=== PATIENT | male | born 1995 | race Caucasian/White ===

== ENCOUNTER 2016-07-19 18:35 | Emergency (ER) | payer BC ==
[~2016-07-19] VITALS: Ht 182.9 cm; Wt 113.4 kg
[2016-07-19] MEDS ORDERED: TETANUS DIPHTHERIA TOXOIDS IM STA (19:27)
--- NOTE | 2016-07-19 19:35 | ER.PDOC ---
General Chief Complaint: Extremities Stated Complaint: FOOT PAIN Time seen by MD: 19:25 Source: patient Exam Limitations: no limitations History of Present Illness Initial Comments Pt who suffered a puncture wound on left foot with leanna, dirty nail that went through the flip flop Onset: just prior to arrival Where: street Severity: moderate Context: laceration, wearing shoes Allergies: Coded Allergies: No Known Allergies (Unverified , 07/19/16) Past Medical History Surgical History: no surgical history Social History Smoking: cigarettes, less than 1 pack/day Alcohol Use: none Drug Use: none Review of Systems Constitutional: see HPI EENTM: see HPI Respiratory: see HPI Cardiovascular: see HPI Gastrointestinal: see HPI Genitourinary: see HPI Musculoskeletal: see HPI Skin: see HPI Psychiatric/Neurological: see HPI Physical Exam General Appearance: Alert, No Apparent Distress Foot: tenderness (plantar aspect, puncture wound) Ankle: nml inspection, non-tender, nml ROM, no joint swelling, skin intact Gait: limited by pain Neuro: sensation nml, motor nml Vascular: no vascular compromise Tendons: tendon function nml Leg/Knee/Thigh: uninjured above ankle Course Blood Pressure Systolic: 142 Blood Pressure Diastolic: 113 Blood Pressure Mean: 123 Departure Time of Disposition: 19:40 Disposition: 01 HOME, SELF-CARE Impression: Primary Impression: Puncture wound of foot Condition: Stable Patient Instructions: Puncture Wound, [id number] DIGNA RAMSEY MD July 19, 2016 19:35
[2016-07-19] MEDS ORDERED: ADACEL VIAL IM ONE (19:36)
[2016-07-19 19:45] VITALS: BP 142/113
== END 2016-07-19 19:43 | disposition home or self-care (01) ==
LOC: ER 18:35
DX: S91.332A Puncture wound without foreign body, left foot, initial encounter (principal); F17.210 Nicotine dependence, cigarettes, uncomplicated; W45.0XXA Nail entering through skin, initial encounter; Y93.89 Activity, other specified; Y92.410 Unspecified street and highway as the place of occurrence of the external cause; Y99.8 Other external cause status
CPT/HCPCS: 90471; 90714; 90715; 99283